=== PATIENT | male | born 1995 | race Caucasian/White ===

== ENCOUNTER 2018-09-20 23:13 | Emergency (ER) | payer OTHER ==
[~2018-09-20] VITALS: Ht 177.8 cm; Wt 69.3 kg
[2018-09-20 23:16] VITALS: BP 114/77
--- NOTE | 2018-09-20 23:34 | NUR ---
pt in [place] in [facility]; erp at .
[2018-09-20] MEDS ORDERED: KETOROLAC 30 MG/1 ML ONE (23:38)
[2018-09-20] MEDS ORDERED: LIDODERM 5% PATCH TD ONE (23:38)
[2018-09-20] MEDS ORDERED: PLEASE ENTER ALLERGIES MC SCH (23:45)
--- NOTE | 2018-09-20 23:46 | NUR ---
PT MEDICATED FOR PAIN PER MAR.
[2018-09-21] MEDS ORDERED: LIDODERM 5% PATCH TD ONE
[2018-09-21] MEDS ORDERED: KETOROLAC 30 MG/1 ML IM ONE
--- NOTE | 2018-09-21 00:07 | NUR ---
PT D/C WITH D/C SUMMARY AND SCRIPTS. ALL QUESTIONS ANSWERED. PT AMBULATES WITH STEADY GAIT TO REGISTRATION DESK WITH D/C HOME. PT DENIES ANY OTHER NEEDS PERTAINING TO THIS VISIT.
== END 2018-09-21 00:09 ==
LOC: ED 23:59
DX: M54.5 Low back pain (principal); J45.909 Unspecified asthma, uncomplicated; X50.0XXA Overexertion from strenuous movement or load, initial encounter; Y93.89 Activity, other specified; Y92.89 Other specified places as the place of occurrence of the external cause; Y99.8 Other external cause status
CPT/HCPCS: 96372; 99283; J1885

== ENCOUNTER 2018-11-07 01:25 | Emergency (ER) | payer OTHER ==
[~2018-11-07] VITALS: Ht 177.8 cm; Wt 64.8 kg
[2018-11-07 01:28] VITALS: BP 102/66
--- NOTE | 2018-11-07 01:53 | NUR ---
pt resting comfortably in [facility] at this time;
[2018-11-07] MEDS ORDERED: KETOROLAC 30 MG/1 ML ONE (02:23)
[2018-11-07] MEDS ORDERED: KETOROLAC 30 MG/1 ML IM ONE (02:30)
--- NOTE | 2018-11-07 02:48 | NUR ---
pt d/c with d/c summary. all questions answered. pt ambulates to regitsration desk with steady gait for d/c home. pt denies any other needs pertaining to this visit.
== END 2018-11-07 02:49 | disposition home or self-care (01) ==
LOC: ED 01:53
DX: S39.012A Strain of muscle, fascia and tendon of lower back, initial encounter (principal); J45.909 Unspecified asthma, uncomplicated; X50.9XXA Other and unspecified overexertion or strenuous movements or postures, initial encounter; Y93.89 Activity, other specified; Y92.69 Other specified industrial and construction area as the place of occurrence of the external cause; Y99.8 Other external cause status
CPT/HCPCS: 96372; 99281; 99283

== ENCOUNTER 2018-11-15 01:49 | Emergency (ER) | payer OTHER ==
[~2018-11-15] VITALS: Ht 180.3 cm; Wt 64.0 kg
[2018-11-15 01:51] VITALS: BP 104/74
--- NOTE | 2018-11-15 01:57 | NUR ---
assessment made. chart up for MD to see.
--- NOTE | 2018-11-15 02:05 | NUR ---
PA at bedside.
[2018-11-15] MEDS ORDERED: KETOROLAC 30 MG/1 ML ONE (02:15)
--- NOTE | 2018-11-15 02:21 | NUR ---
patient medicated for pain. ERP at bedside.
[2018-11-15] MEDS ORDERED: KETOROLAC 30 MG/1 ML IM ONE (02:30)
--- NOTE | 2018-11-15 02:33 | NUR ---
patient discharged with prescription and instruction. work note provided.
== END 2018-11-15 02:35 | disposition home or self-care (01) ==
LOC: ED 02:30
DX: S39.012A Strain of muscle, fascia and tendon of lower back, initial encounter (principal); J45.909 Unspecified asthma, uncomplicated; X58.XXXA Exposure to other specified factors, initial encounter; Y93.89 Activity, other specified; Y92.69 Other specified industrial and construction area as the place of occurrence of the external cause; Y99.8 Other external cause status
CPT/HCPCS: 96372; 99283; J1885; J7512

== ENCOUNTER 2018-11-19 00:10 | Emergency (ER) | payer OTHER ==
[~2018-11-19] VITALS: Ht 180.3 cm; Wt 64.2 kg
--- NOTE | 2018-11-19 00:23 | NUR ---
PT PRESENTED WITH C/O BACK PAIN, PT STATED THAT SEVERAL MONTHS AGO HE HURT HIS BACK AT WORK AND TONIGHT FELL AGAIN. MONITORS APPLIED, SIDERAILS UP X2, CALL LIGHT WITHIN REACH
[2018-11-19] MEDS ORDERED: KETOROLAC 30 MG/1 ML ONE (00:47)
[2018-11-19] MEDS ORDERED: KETOROLAC 30 MG/1 ML IM ONE (01:00)
--- NOTE | 2018-11-19 01:09 | NUR ---
Break RN: patient medicated for pain. discharged with prescription and instruction. verbalized understanding.
[2018-11-19 01:10] VITALS: BP 128/78
== END 2018-11-19 01:11 | disposition home or self-care (01) ==
LOC: ED 00:37
DX: S39.012A Strain of muscle, fascia and tendon of lower back, initial encounter (principal); W22.8XXA Striking against or struck by other objects, initial encounter; Y93.89 Activity, other specified; Y92.89 Other specified places as the place of occurrence of the external cause; Y99.8 Other external cause status
CPT/HCPCS: 96372; 99283; J1885

== ENCOUNTER 2018-11-21 01:30 | Emergency (ER) | payer OTHER ==
[~2018-11-21] VITALS: Ht 180.3 cm; Wt 64.7 kg
[2018-11-21 01:32] VITALS: BP 105/67
[2018-11-21] MEDS ORDERED: FLEXERIL (01:35)
[2018-11-21] MEDS ORDERED: TRAMADOL (01:35)
--- NOTE | 2018-11-21 01:58 | NUR ---
PT PRESENTED WITH C/O BACK PAIN THAT BEGAN WITH A WORK ISSUE ON September. PAIN WORSENING X 1 DAY. MONITORS APPLIED, SIDERAILS UP X2, CALL LIGHT WITHIN REACH
== END 2018-11-21 02:23 | disposition home or self-care (01) ==
LOC: ED 01:58
DX: M54.5 Low back pain (principal); G89.29 Other chronic pain; J45.909 Unspecified asthma, uncomplicated
CPT/HCPCS: 99282